=== PATIENT | male | born 1935 | race Caucasian/White ===

== ENCOUNTER 2018-04-04 12:55 | Inpatient (IN) | payer OTHER, BC ==
[2018-04-04] MEDS ORDERED: FOLIC ACID 5 MG/ML VIAL ONE (13:45)
--- NOTE | 2018-04-04 14:22 | RAD REPORT ---
EXAM DESCRIPTION: CT - Head Brain Wo Cont - 04/04/2018 1:56 pm CLINICAL HISTORY: Indication COMPARISON: None. TECHNIQUE: Computed axial tomography of the head was obtained. IV contrast was not requested. All CT scans are performed using dose optimization technique as appropriate and may include automated exposure control or mA/KV adjustment according to patient size. FINDINGS: 5.5 centimeter low-density area is present within the superior left temporal lobe having t he appearance of an acute infarction. An intracranial bleed is not seen . The ventricles are normal in caliber. Shift of the midline structures is not noted No extra-axial fluid collection is noted. Fluid within the sinuses/ mastoids is not seen. 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 Jones was notified at 2:17 p.m.
--- NOTE | 2018-04-04 14:28 | RAD REPORT ---
EXAM DESCRIPTION: USCarotid Artery Norlgphmz62/9/2018 2:12 pm CLINICAL HISTORY: Slurred speech COMPARISON: None FINDINGS: The velocity of the right internal carotid artery equals 91 cm/sec. The right ICA/CCA rati o 1.2 The velocity of the left internal carotid artery equals 102 cm/sec. The left ICA/CCA ratio 1.1 Mild plaque is present within the carotid arteries. The vertebral arteries demonstrate antegrade flow IMPRESSION: Mild plaque within the carotid arteries without evidence of a hemodynamically significan t stenosis
--- NOTE | 2018-04-04 15:04 | RAD REPORT ---
EXAM DESCRIPTION: Td Single View04/04/2018 2:40 pm CLINICAL HISTORY: Hypertension/cough COMPARISON: None FINDINGS: The lungs appear clear of acute infiltrate. The heart is mildly enlarged. Postsurgical changes involve the chest. Bilateral calcified pleural plaques are seen. IMPRESSION: No acute abnormalities displayed
--- NOTE | 2018-04-04 15:04 | EKG ---
Test Date: 2018-04-04 Test Time: 13:44:18 Insurance Inspector: TUSHAR MEASUREMENT RESULTS: Intervals: Rate: 66 NC: 198 QRSD: 120 QT: 384 QTc: 402 [place]: P: 62 NC: 198 QRS: 28 T: 95 INTERPRETIVE STATEMENTS: Normal sinus rhythm Anterior infarct, age undetermined ST & T wave abnormality, consider lateral ischemia Intraventricular conduction delay Abnormal ECG No previous ECG available for comparison Electronically Signed On 04-04-18 15:04:10 CDT by Luis Mary
[2018-04-04 15:05] LABS: Absolute Lymphocytes (CBC) 0.8 K/uL (0.7-4.9); Absolute Monocytes 0.6 K/uL (0.1-1.3); Basophils % 1.5 % (0-1.3); Eosinophils % 2.4 % (0-4.4); Lymphocytes % 17.7 % (15.3-44.8); MCH 32.4 pg (27.0-35.0); MCV 94.1 fL (80-100); MPV 8.4 fL (7.6-11.3); Monocytes % 12.2 % (3.3-12.3); RBC Red Blood Cell Count 4.46 M/uL (4.33-5.43)
--- NOTE | 2018-04-04 15:05 | EDPHYS ---
Physician Documentation [facility] Name: Oliver Vasquez Age: 82 yrs Sex: Male : 1935 Arrival Date: 04/04/2018 Time: 12:59 Bed 27 Private MD: ED Physician Rodrigo Arboleda HPI: 04/04 14:58 This 82 yrs old Male presents to ER via Ambulatory with complaints of onel Headache. 14:58 The patient complains of pain to the forehead. The patient describes the headache as a onel pressure. Onset: The symptoms/episode began/occurred 1 day(s) ago. Associated signs and symptoms: The patient has no apparent associated signs or symptoms. Severity of symptoms: At its worst the pain was moderate. 15:00 The patient's problem is reported as a facial droop, on left. Onset: The onel symptoms/episode began/occurred 1 day(s) ago. The symptoms are alleviated by nothing. The symptoms are aggravated by nothing. The patient presents to the emergency department with weakness of the left side of the face, that is moderate, upper and lower, a speech or higher order brain function problem, aphasia, that is mild. Historical: - Allergies: 13:08 Inderal; aa5 13:08 Lovastatin; aa5 13:08 TETRACYCLINES; aa5 - Home Meds: 13:08 losartan 100 mg oral tab [Active]; lisinopril 20 mg Oral tab [Active]; simvastatin 20 aa5 mg Oral tab [Active]; clonazepam 1 mg Oral tab [Active]; aspirin 81 mg oral chew 2 tabs once daily [Active]; - PMHx: 13:08 Hypertension; Hyperlipidemia; aa5 - PSHx: 13:08 Carotid surgery; triple bypass; aa5 - Immunization history:: Pneumococcal vaccine status is unknown, Flu vaccine is up to date. - Social history:: Smoking status: Patient/guardian denies using tobacco. - Ebola Screening: : No symptoms or risks identified at this time. - Family history:: not pertinent. ROS: 15:00 Constitutional: Negative for fever, chills, and weight loss, Eyes: Negative for injury, onel pain, redness, and discharge, ENT: Negative for injury, pain, and discharge, Neck: Negative for injury, pain, and swelling, Cardiovascular: Negative for chest pain, palpitations, and edema, Respiratory: Negative for shortness of breath, cough, wheezing, and pleuritic chest pain, Abdomen/GI: Negative for abdominal pain, nausea, vomiting, diarrhea, and constipation, Back: Negative for injury and pain, : Negative for injury, bleeding, discharge, and swelling, MS/Extremity: Negative for injury and deformity, Skin: Negative for injury, rash, and discoloration, Psych: Negative for depression, anxiety, suicide ideation, homicidal ideation, and hallucinations, Allergy/Immunology: Negative for hives, rash, and allergies, Endocrine: Negative for neck swelling, polydipsia, polyuria, polyphagia, and marked weight changes, Hematologic/Lymphatic: Negative for swollen nodes, abnormal bleeding, and unusual bruising. 15:00 Neuro: Positive for speech changes, weakness, of the forehead, left ear, left cheek, left shinto and left jaw. Exam: 15:00 Radiologist reports: left temporal acute infarction onel 15:00 Constitutional: This is a well developed, well nourished patient who is awake, alert, and in no acute distress. Eyes: Pupils equal round and reactive to light, extra-ocular motions intact. Lids and lashes normal. Conjunctiva and sclera are non-icteric and not injected. Cornea within normal limits. Periorbital areas with no swelling, redness, or edema. ENT: Nares patent. No nasal discharge, no septal abnormalities noted. Tympanic membranes are normal and external auditory canals are clear. Oropharynx with no redness, swelling, or masses, exudates, or evidence of obstruction, uvula midline. Mucous membranes moist. Neck: Trachea midline, no thyromegaly or masses palpated, and no cervical lymphadenopathy. Supple, full range of motion without nuchal rigidity, or vertebral point tenderness. No Meningismus. Chest/axilla: Normal chest wall appearance and motion. Nontender with no deformity. No lesions are appreciated. Cardiovascular: Regular rate and rhythm with a normal S1 and S2. No gallops, murmurs, or rubs. Normal PMI, no JVD. No pulse deficits. Respiratory: Lungs have equal breath sounds bilaterally, clear to auscultation and percussion. No rales, rhonchi or wheezes noted. No increased work of breathing, no retractions or nasal flaring. Abdomen/GI: Soft, non-tender, with normal bowel sounds. No distension or tympany. No guarding or rebound. No evidence of tenderness throughout. Back: No spinal tenderness. No costovertebral tenderness. Full range of motion. Male : Normal genitalia with no discharge or lesions. Skin: Warm, dry with normal turgor. Normal color with no rashes, no lesions, and no evidence of cellulitis. MS/ Extremity: Pulses equal, no cyanosis. Neurovascular intact. Full, normal range of motion. Psych: Awake, alert, with orientation to person, place and time. Behavior, mood, and affect are within normal limits. 15:00 Head/face: Noted is left facial weakness. 15:18 Neuro: symptoms started yesterday, not a tpa candidate, dw dr campos, he concurrs. [facility] Vital Signs: 13:10 BP 180 / 91; Pulse 79; Resp 18 S; Temp 98.5(O); Pulse Ox 98% on R/A; Weight 68.04 kg aa5 (R); Height 5 ft. 7 in. (170.18 cm) (R); Pain 0/10; 14:54 BP 191 / 75; Pulse 66; Resp 18; Pulse Ox 99% ; tl3 16:01 BP 164 / 82; Pulse 53; Resp 18; Pulse Ox 100% on R/A; tl3 13:10 Body Mass Index 23.49 (68.04 kg, 170.18 cm) aa5 NIH Stroke Scale Scores: 13:26 NIHSS Score: 2 tl3 15:04 NIHSS Score: 3 onel [place] Coma Score: 15:04 Eye Response: spontaneous(4). Verbal Response: oriented(5). Motor Response: obeys [facility] commands(6). Total: 15. MDM: 13:20 Patient medically screened. [facility] 15:07 Data reviewed: vital signs, nurses notes, lab test result(s), EKG, radiologic studies, [facility] CT scan, plain films, ultrasound. 04/04 13:30 Order name: Basic Metabolic Panel [facility] 04/04 13:30 Order name: CBC with Diff [facility] 04/04 13:30 Order name: LFT's [facility] 04/04 13:30 Order name: Magnesium [facility] 04/04 13:30 Order name: NT PRO-BNP [facility] 04/04 13:30 Order name: PT-INR [facility] 04/04 13:30 Order name: Troponin (emerg Dept Use Only) [facility] 04/04 13:30 Order name: XRAY Chest (1 view) [facility] 04/04 13:30 Order name: Lipase [facility] 04/04 13:30 Order name: Sed Rate [facility] 04/04 13:30 Order name: CRP [facility] 04/04 13:30 Order name: US Carotid Artery Bilateral; Complete Time: 14:55 [facility] 04/04 13:30 Order name: CT Head Brain wo Cont; Complete Time: 14:55 [facility] 04/04 13:30 Order name: Urine Culture [facility] 04/04 13:30 Order name: EKG; Complete Time: 13:31 [facility] 04/04 13:30 Order name: Cardiac monitoring; Complete Time: 13:36 [facility] 04/04 13:30 Order name: EKG - Nurse/Tech; Complete Time: 14:03 [facility] 04/04 13:30 Order name: IV Saline Lock; Complete Time: 13:36 [facility] 04/04 13:30 Order name: Labs collected and sent; Complete Time: 13:36 [facility] 04/04 13:30 Order name: O2 Per Protocol; Complete Time: 13:36 [facility] 04/04 13:30 Order name: O2 Sat Monitoring; Complete Time: 13:36 [facility] 04/04 13:30 Order name: MRI Stroke Protocol [facility] 04/04 13:30 Order name: Urine Dipstick-Ancillary (obtain specimen); Complete Time: 15:22 [facility] 04/04 15:10 Order name: Echo w/ Doppler [facility] 04/04 15:15 Order name: CONS Physician Consult; Complete Time: 17:02 EDCT 04/04 13:46 Order name: Labs - recollect needed; Complete Time: 14:48 bd Administered Medications: 13:40 Drug: foLIC Acid 1 mg Route: IVPB; Site: right antecubital; tl3 14:03 Follow up: Response: No adverse reaction tl3 15:22 Follow up: IV Status: Completed infusion; IV Intake: 3ml tl3 15:38 Drug: valACYclovir 1000 mg Route: PO; tl3 15:40 Follow up: Response: No adverse reaction tl3 15:39 Drug: Aspirin Chewable Tablet 162 mg Route: PO; tl3 16:02 Follow up: Response: No adverse reaction tl3 15:39 Drug: PlaVIX 75 mg Route: PO; tl3 15:40 Follow up: Response: No adverse reaction tl3 15:39 Drug: predniSONE 60 mg Route: PO; tl3 15:40 Follow up: Response: No adverse reaction tl3 Disposition: 04/04/18 15:04 Hospitalization ordered by Lucien Zhou for Inpatient Admission. 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 - Bed requested for Telemetry/MedSurg (Inpatient). - Status is Inpatient Admission. tl3 - Condition is Fair. - Problem is new. - Symptoms are unchanged. UTI on Admission? No NIH Stroke Scale - NIH Stroke Score Date: 04/04/2018 Time: 13:26 Total Score = 2 1a. Level of Consciousness (LOC) - 0(Alert) 1b. Level of Consciousness (LOC) (Year \T\ Age) - 0(Both) 1c. LOC Commands (Open \T\ Closes Eyes/Floor Plan Adjuster) - 0(Both) 2. Best Gaze (Lateral Gaze Paresis) - 0(Normal) 3. Visual Field Loss - 0(No visual loss) 4. Facial Palsy - 1(Minor Paralysis) 5a. Left Arm: Motor (10-second hold) - 0(No drift) 5b. Right Arm: Motor (10-second hold) - 0(No drift) 6a. Left Leg: Motor (5-second hold - always test supine) - 0(No drift) 6b. Right Leg: Motor (5-second hold - always test supine) - 0(No drift) 7. Limb Ataxia (finger/nose \T\ heel/marie - test with eyes open) - 0(Absent) 8. Sensory Loss (pinprick arms/legs/face) - 0(Normal) 9. Best Language: Aphasia (description/naming/reading) - 1(Mild to moderate aphasia) 10. Dysarthria (speech clarity - read or repeat words) - 0(Normal) 11. Extinction and Inattention (visual/tactile/auditory/spatial/personal) - 0(No abnormality) Initials: tl3 NIH Stroke Scale - NIH Stroke Score Date: 04/04/2018 Time: 15:04 Total Score = 3 1a. Level of Consciousness (LOC) - 0(Alert) 1b. Level of Consciousness (LOC) (Year \T\ Age) - 0(Both) 1c. LOC Commands (Open \T\ Closes Eyes/Floor Plan Adjuster) - 0(Both) 2. Best Gaze (Lateral Gaze Paresis) - 0(Normal) 3. Visual Field Loss - 0(No visual loss) 4. Facial Palsy - 2(Partial paralysis) 5a. Left Arm: Motor (10-second hold) - 0(No drift) 5b. Right Arm: Motor (10-second hold) - 0(No drift) 6a. Left Leg: Motor (5-second hold - always test supine) - 0(No drift) 6b. Right Leg: Motor (5-second hold - always test supine) - 0(No drift) 7. Limb Ataxia (finger/nose \T\ heel/marie - test with eyes open) - 0(Absent) 8. Sensory Loss (pinprick arms/legs/face) - 0(Normal) 9. Best Language: Aphasia (description/naming/reading) - 1(Mild to moderate aphasia) 10. Dysarthria (speech clarity - read or repeat words) - 0(Normal) 11. Extinction and Inattention (visual/tactile/auditory/spatial/personal) - 0(No abnormality) Initials: onel Signatures: Dispatcher [employer] EDElisha Lopse Corey, MD MD cha Calderon, Audri, RN RN aa5 Cinthia Garcia, MIGUELITO RN tl3 Corrections: (The following items were deleted from the chart) 17:13 15:04 Hospitalization Ordered by Lucien Zhou MD for Inpatient Admission. bd Preliminary diagnosis is Jaquez's palsy; Cerebral infarction - left temporal. Bed requested for Telemetry/MedSurg (Inpatient). Status is Inpatient Admission. Condition is Fair. Problem is new. Symptoms are unchanged. UTI on Admission? No. onel 17:34 17:13 04/04/2018 15:04 Hospitalization Ordered by Lucien Zhou MD for tl3 Inpatient Admission. 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 Bed requested for Telemetry/MedSurg (Inpatient). Status is Inpatient Admission. Condition is Fair. Problem is new. Symptoms are unchanged. UTI on Admission? No. grzegorz
--- NOTE | 2018-04-04 15:05 | ER ---
Nurse's Notes [facility] Name: Oliver Vasquez Age: 82 yrs Sex: Male : 1935 Arrival Date: 04/04/2018 Time: 12:59 Bed 27 Private MD: Diagnosis: Jaquez's palsy;Cerebral infarction-left temporal Presentation: 04/04 13:05 Presenting complaint: Patient states: "yesterday I just got a terrible headache". Pt aa5 denies nausea, vomiting. Mild aphasia noted and left facial droop noted. Pt's states "yesterday he was really bad, I was talking to him but he was like he couldn't hear me". 13:05 Transition of care: patient was not received from another setting of care. Onset of aa5 symptoms was March 2018. Risk Assessment: Do you want to hurt yourself or someone else? Patient reports no desire to harm self or others. Initial Sepsis Screen: Does the patient meet any 2 criteria? No. Patient's initial sepsis screen is negative. Does the patient have a suspected source of infection? No. Patient's initial sepsis screen is negative. Care prior to arrival: None. 13:05 Method Of Arrival: Ambulatory aa5 13:05 Acuity: BORIS 2 aa5 Triage Assessment: 17:33 Headache History: Denies prior headaches. General: Appears in no apparent distress. tl3 General: Behavior is calm, cooperative, appropriate for age. Pain: Also complains of. Pain: Denies pain. Pain Pain began 1 day ago. Historical: - Allergies: 13:08 Inderal; aa5 13:08 Lovastatin; aa5 13:08 TETRACYCLINES; aa5 - Home Meds: 13:08 losartan 100 mg oral tab [Active]; lisinopril 20 mg Oral tab [Active]; simvastatin 20 aa5 mg Oral tab [Active]; clonazepam 1 mg Oral tab [Active]; aspirin 81 mg oral chew 2 tabs once daily [Active]; - PMHx: 13:08 Hypertension; Hyperlipidemia; aa5 - PSHx: 13:08 Carotid surgery; triple bypass; aa5 - Immunization history:: Pneumococcal vaccine status is unknown, Flu vaccine is up to date. - Social history:: Smoking status: Patient/guardian denies using tobacco. - Ebola Screening: : No symptoms or risks identified at this time. - Family history:: not pertinent. Screenin:26 Abuse screen: Denies threats or abuse. Nutritional screening: No deficits noted. tl3 Tuberculosis screening: No symptoms or risk factors identified. The patient has not been NPO before screening. The patient is alert, able to follow commands. The patient does not exhibit slurred or garbled speech The patient is not exhibiting difficulty speaking. The patient is exhibiting difficulty understanding words. The patient is able to swallow own secretions with no drooling or need for suction. Patient tolerated one teaspoon of water. No drooling, immediate coughing, gurgling, or clearing of the throat was noted. The patient tolerated 90mL of water. No drooling, immediate coughing, gurgling, or clearing of the throat was noted. The patient passed the bedside swallow screening. Oral medications may be given as ordered. Contact Physician for further diet orders. Fall Risk None identified. Assessment: 13:26 General: Appears in no apparent distress. comfortable, slender, well groomed, well tl3 developed, well nourished, Behavior is calm, cooperative, appropriate for age. Pain: Denies pain. Neuro: Level of Consciousness is awake, alert, obeys commands, pt states that he had a terrible headache yesterday when he woke up, today he has no pain but feels "foggy", answers all questions appropriately but has trouble finding the right words. Oriented to person, place, time, situation, Appropriate for age. Cardiovascular: Patient's skin is warm and dry. Rhythm is sinus rhythm. Respiratory: Airway is patent Respiratory effort is even, unlabored, Respiratory pattern is regular, symmetrical. GI: No signs and/or symptoms were reported involving the gastrointestinal system. : No signs and/or symptoms were reported regarding the genitourinary system. EENT: No signs and/or symptoms were reported regarding the EENT system. Derm: No signs and/or symptoms reported regarding the dermatologic system. Musculoskeletal: No signs and/or symptoms reported regarding the musculoskeletal system. 14:54 Reassessment: Patient appears in no apparent distress at this time. No changes from tl3 previously documented assessment. Patient and/or family updated on plan of care and expected duration. Pain level reassessed. Patient is alert, oriented x 3, equal unlabored respirations, skin warm/dry/pink. at bedside. 16:01 Reassessment: Patient appears in no apparent distress at this time. No changes from tl3 previously documented assessment. Patient and/or family updated on plan of care and expected duration. Pain level reassessed. Patient is alert, oriented x 3, equal unlabored respirations, skin warm/dry/pink. 17:02 Reassessment: Pt to MRI. tl3 17:31 Reassessment: Patient appears in no apparent distress at this time. No changes from tl3 previously documented assessment. Patient and/or family updated on plan of care and expected duration. Pain level reassessed. Patient is alert, oriented x 3, equal unlabored respirations, skin warm/dry/pink. pt returned from MRI. Vital Signs: 13:10 BP 180 / 91; Pulse 79; Resp 18 S; Temp 98.5(O); Pulse Ox 98% on R/A; Weight 68.04 kg aa5 (R); Height 5 ft. 7 in. (170.18 cm) (R); Pain 0/10; 14:54 BP 191 / 75; Pulse 66; Resp 18; Pulse Ox 99% ; tl3 16:01 BP 164 / 82; Pulse 53; Resp 18; Pulse Ox 100% on R/A; tl3 13:10 Body Mass Index 23.49 (68.04 kg, 170.18 cm) aa5 [place] Coma Score: 15:04 Eye Response: spontaneous(4). Verbal Response: oriented(5). Motor Response: obeys onel commands(6). Total: 15. NIH Stroke Scale Scores: 13:26 NIHSS Score: 2 tl3 15:04 NIHSS Score: 3 [facility] ED Course: 12:59 Patient arrived in ED. mr 13:05 Arm band placed on Patient placed in an exam room, on a stretcher. aa5 13:20 Rodrigo Arboleda MD is Attending Physician. [facility] 13:25 Triage completed. aa5 13:26 Cinthia Garcia, RN is Primary Nurse. tl3 13:26 Patient has correct armband on for positive identification. Placed in gown. Bed in low tl3 position. Call light in reach. Side rails up X2. Adult w/ patient. director cost on. Pulse ox on. NIBP on. 13:26 No provider procedures requiring assistance completed. tl3 13:45 Note: WILL DO U/S AFTER CT. aa4 13:54 EKG done, by explosive ordnance disposal technician. reviewed by Rodrigo Arboleda MD. dt2 13:55 CT completed. Patient tolerated procedure well. Patient moved to CT via wheelchair. sj Patient taken to ultrasound. Patient moved back from CT. 13:56 CT Head Brain wo Cont In Process Unspecified. EDMS 14:08 US Carotid Artery Bilateral In Process Unspecified. EDMS 14:29 Ultrasound completed. Patient tolerated well. Patient moved back from ultrasound. aa4 14:35 X-ray completed. Portable x-ray completed in exam room. Patient tolerated procedure ml well. 14:36 XRAY Chest (1 view) In Process Unspecified. EDMS 15:03 Lucien Zhou MD is Hospitalizing Provider. [facility] 15:22 MRI Stroke Protocol Sent. tl3 16:30 Patient moved to MRI via wheelchair. ka 17:31 Patient admitted, IV remains in place. tl3 Administered Medications: 13:40 Drug: foLIC Acid 1 mg Route: IVPB; Site: right antecubital; tl3 14:03 Follow up: Response: No adverse reaction tl3 15:22 Follow up: IV Status: Completed infusion; IV Intake: 3ml tl3 15:38 Drug: valACYclovir 1000 mg Route: PO; tl3 15:40 Follow up: Response: No adverse reaction tl3 15:39 Drug: Aspirin Chewable Tablet 162 mg Route: PO; tl3 16:02 Follow up: Response: No adverse reaction tl3 15:39 Drug: PlaVIX 75 mg Route: PO; tl3 15:40 Follow up: Response: No adverse reaction tl3 15:39 Drug: predniSONE 60 mg Route: PO; tl3 15:40 Follow up: Response: No adverse reaction tl3 Intake: 15:22 IV: 3ml; Total: 3ml. tl3 Outcome: 15:04 Decision to Hospitalize by Provider. onel 17:31 Admitted to Tele accompanied by tech, via wheelchair, with chart, Report called to [email or web address] MIGUELITO Chaudhry 17:31 Condition: stable 17:31 Instructed on the need for admit, Demonstrated understanding of instructions. 17:34 Patient left the ED. tl3 NIH Stroke Scale - NIH Stroke Score Date: 04/04/2018 Time: 13:26 Total Score = 2 1a. Level of Consciousness (LOC) - 0(Alert) 1b. Level of Consciousness (LOC) (Year \\T\\ Age) - 0(Both) 1c. LOC Commands (Open \\T\\ Closes Eyes/Nurse Chemical Dependency) - 0(Both) 2. Best Gaze (Lateral Gaze Paresis) - 0(Normal) 3. Visual Field Loss - 0(No visual loss) 4. Facial Palsy - 1(Minor Paralysis) 5a. Left Arm: Motor (10-second hold) - 0(No drift) 5b. Right Arm: Motor (10-second hold) - 0(No drift) 6a. Left Leg: Motor (5-second hold - always test supine) - 0(No drift) 6b. Right Leg: Motor (5-second hold - always test supine) - 0(No drift) 7. Limb Ataxia (finger/nose \\T\\ heel/marie - test with eyes open) - 0(Absent) 8. Sensory Loss (pinprick arms/legs/face) - 0(Normal) 9. Best Language: Aphasia (description/naming/reading) - 1(Mild to moderate aphasia) 10. Dysarthria (speech clarity - read or repeat words) - 0(Normal) 11. Extinction and Inattention (visual/tactile/auditory/spatial/personal) - 0(No abnormality) Initials: tl3 NIH Stroke Scale - NIH Stroke Score Date: 04/04/2018 Time: 15:04 Total Score = 3 1a. Level of Consciousness (LOC) - 0(Alert) 1b. Level of Consciousness (LOC) (Year \\T\\ Age) - 0(Both) 1c. LOC Commands (Open \\T\\ Closes Eyes/Nurse Chemical Dependency) - 0(Both) 2. Best Gaze (Lateral Gaze Paresis) - 0(Normal) 3. Visual Field Loss - 0(No visual loss) 4. Facial Palsy - 2(Partial paralysis) 5a. Left Arm: Motor (10-second hold) - 0(No drift) 5b. Right Arm: Motor (10-second hold) - 0(No drift) 6a. Left Leg: Motor (5-second hold - always test supine) - 0(No drift) 6b. Right Leg: Motor (5-second hold - always test supine) - 0(No drift) 7. Limb Ataxia (finger/nose \\T\\ heel/marie - test with eyes open) - 0(Absent) 8. Sensory Loss (pinprick arms/legs/face) - 0(Normal) 9. Best Language: Aphasia (description/naming/reading) - 1(Mild to moderate aphasia) 10. Dysarthria (speech clarity - read or repeat words) - 0(Normal) 11. Extinction and Inattention (visual/tactile/auditory/spatial/personal) - 0(No abnormality) Initials: onel Signatures: Dispatcher [employer] Rodrigo Ojeda MD MD cha Rivera, Taina mr Del Toro, Estephania Jang, Arianna Nagel aa4 Dee Zavala, RN RN aa5 Shiloh Szymanski Tammy, RN RN tl3 Sana Sylvester
[2018-04-04] MEDS ORDERED: VALACYCLOVIR 500 MG TAB ONE (15:32)
[2018-04-04] MEDS ORDERED: ASPIRIN 81 MG CHEWABLE TABLET ONE (15:32)
[2018-04-04] MEDS ORDERED: CLOPIDOGREL 75 MG TABLET ONE (15:32)
[2018-04-04] MEDS ORDERED: predniSONE 20 MG TAB ONE (15:33)
[2018-04-04 16:12] LABS: ALT/SGPT 34 U/L (12-78); AST/SGOT 29 U/L (15-37); Albumin 3.7 g/dL (3.4-5.0); Alkaline Phosphatase 64 U/L (45-117); BUN Blood Urea Nitrogen 13 mg/dL (7-18); Bicarbonate 28 mmol/L (21-32); Bilirubin Direct < 0.1 mg/dL (0-0.2); Bilirubin Total 0.4 mg/dL (0.2-1.0); C-Reactive Protein < 2.90 mg/L (<3.00); Glucose Level 90 mg/dL (74-106); Lipase 176 U/L (73-393); Magnesium 2.4 mg/dL (1.8-2.4); NT PRO-BNP 143 pg/mL (<450); Potassium 4.5 mmol/L (3.5-5.1); Protein, Total 7.6 g/dL (6.4-8.2); Sodium Level 135 mmol/L (136-145); Troponin (Emerg Dept Use Only) < 0.02 ng/mL (0.0-0.045)
[2018-04-04] MEDS ORDERED: MAGNESIUM HYDROXIDE 8% 30 ML PO PRN (16:18)
[2018-04-04] MEDS ORDERED: ONDANSETRON 4 MG/2 ML VIAL IV PRN (16:18)
[2018-04-04 16:37] LABS: Protime INR 0.99
--- NOTE | 2018-04-04 17:29 | ECHO ---
HEIGHT: ft in WEIGHT: lb oz DATE OF STUDY: 04/04/[address]: Rodrigo Arboleda MD 2-DIMENSIONAL: YES M.MODE: YES DOPPLER: YES COLOR FLOW: YES TDS: PORTABLE: DEFINITY: BUBBLE STUDY: DIAGNOSIS: CEREBRAL VASCULAR ACCIDENT CARDIAC HISTORY: CATHERIZATION: YES SURGERY: YES PROSTHETIC VALVE: NO PACEMAKER: YES MEASUREMENTS (cm) DIASTOLIC (NORMALS) SYSTOLIC (NORMALS) IVSd 0.9 (0.6-1.2) LA Diam 3.7 (1.9-4.0) LVEF 51% LVIDd 4.6 (3.5-5.7) LVIDs 3.4 (2.0-3.5) %FS 26% LVPWd 0.9 (0.6-1.2) Ao Diam 2.8 (2.0-3.7) 2 DIMENSIONAL ASSESSMENT: RIGHT ATRIUM: NORMAL LEFT ATRIUM: NORMAL RIGHT VENTRICLE: NORMAL LEFT VENTRICLE: NORMAL TRICUSPID VALVE: NORMAL MITRAL VALVE: NORMAL PULMONIC VALVE: NORMAL AORTIC VALVE: SCLEROSIS PERICARDIAL EFFUSION: NONE AORTIC ROOT: NORMAL LEFT VENTRICULAR WALL MOTION: NORMAL DOPPLER/COLOR FLOW: MILD AORTIC REGURGITATION. MILD TRICUSPID REGURGITATION. NORMAL RIGHT VENTRICULAR SYSTOLIC PRESSURE. NO AORTIC STENOSIS. COMMENTS: NORMAL LEFT VENTRICULAR EJECTION FRACTION. AORTIC SCLEROSIS WITH NO AORTIC STENOSIS. MILD AORTIC REGURGITATION. MILD TRICUSPID REGURGITATION. TECHNOLOGIST: DANDRE STEVENS
--- NOTE | 2018-04-04 17:34 | RAD REPORT ---
EXAM DESCRIPTION: MRI - Brain W/Wo Cont - 04/04/2018 5:22 pm CLINICAL HISTORY: HEADACHE, MILD APHASIA, LEFT FACIAL DROOP SINCE YESTERDAY COMPARISON: CT head same date TECHNIQUE: Sagittal and axial T1-weighted images were obtained. Axial PD/heavily T2-weighted and T2- FLAIR images were obtained along with axial DWI/ADC mapping sequences. Coronal heavily T2 weighted s equence obtained. Axial and coronal post-contrast T1-weighted images were also obtained. A 16 ml Mul tihance contrast following utilized. FINDINGS: No intracranial hemorrhage is present. Diffusion-weighted imaging shows a large 8 centimet er area of abnormal diffusion signal involving the posterior left temporal lobe and including a porti on of the anterolateral left occipital lobe and inferior aspect of the left parietal lobe. This match es the CT finding. There is corresponding diminished signal on ADC mapping sequence. Cortical edema a nd sulcal effacement present. No significant mass effect. There is no midline shift. No additional area of acute infarction. Patient has no significant chronic ischemic change and only m ild atrophy. No suspicious enhancement pattern. No dural thickening or enhancement. Mastoid air cells and paranasal sinuses are clear. No globe or orbital content abnormality. IMPRESSION: Large area of nonhemorrhagic acute infarction involving the posterior left temporal lobe and incorporating portions of the parietal lobe and anterior margin of the occipital lobe. There is mild edema with no significant mass effect. No midline shift. Patient has little underlying atrophy or chronic ischemic change.
--- NOTE | 2018-04-04 17:37 | RAD REPORT ---
EXAM DESCRIPTION: MRI - MRA Neck W/Wo Cont - 04/04/2018 5:23 pm CLINICAL HISTORY: Acute CVA left cerebral hemisphere COMPARISON: None. TECHNIQUE: Axial and coronal 3D [id number] image acquisition was performed. 3D rotational images were generated with source and reconstruction images reviewed. Vertical axes 3D rotational images ge nerated using maximum intensity projection protocol. A 12 milliliter MultiHance contrast volume was u tilized. FINDINGS: Aortic arch is 3 vessel. No origin stenosis seen. Vertebral artery origins also clear of s ignificant stenosis. Left vertebral artery origin is tortuous. Vertebral arteries are codominant. No stenosis, dissection or acute vertebral finding. Vertebrobasilar tortuosity present without stenosis. Bilateral common carotid artery show some proximal tortuosity but no stenosis or acute finding. Left internal carotid artery is unremarkable. Right internal carotid artery shows approximately 40% stenos is at the bulb. This would be unrelated to a left cerebral CVA. IMPRESSION: Approximately 40% narrowing at the right carotid bulb, not related to the acute CVA. MRA neck examination otherwise unremarkable.
--- NOTE | 2018-04-04 17:40 | RAD REPORT ---
EXAM DESCRIPTION: MRI - MRA Head Wo Cont - 04/04/2018 5:23 pm COMPARISON: None. TECHNIQUE: Axial and coronal 3D [id number] image acquisition was performed. 3D rotational images were generated with source and reconstruction images reviewed. Horizontal and vertical axes 3D proje ctions generated using maximum intensity projection protocol. FINDINGS: Major venous sinuses are patent. Vertebrobasilar tortuosity present with no stenosis. No basilar artery abnormality. Distal internal c arotid artery show no significant disease. The bilateral anterior cerebral and right middle cerebral artery show no significant disease. Bilateral posterior cerebral arteries also without significant di sease. Mild atherosclerotic changes in the left middle cerebral artery distribution. A specific branc h occlusion matching the CVA is not identified. IMPRESSION: No significant intracranial atherosclerotic change and no significant disease of the bas ilar artery or distal internal carotid arteries. A specific branch occlusion is not identified to match the acute CVA findings.
[2018-04-04] MEDS: NA CHLORIDE 0.9% 1,000 ML IV SCH (18:30)
[2018-04-04] MEDS: ENOXAPARIN 40 MG/0.4 ML SQ SCH (18:32)
[2018-04-04 18:48] LABS: Urine Blood 1+ (NEG); Urine Glucose NEGATIVE (NEG); Urine Protein NEGATIVE (NEG); Urine Specific Gravity <1.005 (1.005-1.030); Urine pH 5.5 (5.0-7.0)
[2018-04-04] MEDS: ALBUTEROL 2.5 MG/3 ML NEB SOL NEB SCH (19:33)
[2018-04-04] MEDS: IPRATROPIUM BROM 0.5MG/2.5ML NEB SCH (19:33)
[2018-04-05] MEDS: IPRATROPIUM BROM 0.5MG/2.5ML NEB SCH ×4 (01:21→20:05)
[2018-04-05] MEDS: ALBUTEROL 2.5 MG/3 ML NEB SOL NEB SCH ×4 (01:21→20:05)
[2018-04-05] MEDS: NA CHLORIDE 0.9% 1,000 ML IV SCH ×3 (04:25→19:40)
[2018-04-05 04:58] LABS: Absolute Lymphocytes (CBC) 0.7 K/uL (0.7-4.9); Absolute Monocytes 0.2 K/uL (0.1-1.3); Absolute Neutrophil 4.7 K/uL (1.8-8.0); Basophils % 0.2 % (0-1.3); Hematocrit 41.8 % (39.6-49.0); Lymphocytes % 11.9 % (15.3-44.8); MCH 32.7 pg (27.0-35.0); MCV 94.5 fL (80-100); MPV 8.6 fL (7.6-11.3); Monocytes % 2.9 % (3.3-12.3); RBC Red Blood Cell Count 4.43 M/uL (4.33-5.43)
[2018-04-05 05:15] LABS: ALT/SGPT 26 U/L (12-78); AST/SGOT 22 U/L (15-37); Albumin 3.3 g/dL (3.4-5.0); Alkaline Phosphatase 54 U/L (45-117); BUN Blood Urea Nitrogen 12 mg/dL (7-18); Bicarbonate 25 mmol/L (21-32); Bilirubin Total 0.3 mg/dL (0.2-1.0); Glucose Level 163 mg/dL (74-106); HDL Cholesterol 50 mg/dL (40-60); LDL Cholesterol, Calculated 62 (<130); Magnesium 2.1 mg/dL (1.8-2.4); Phosphorus 3.4 mg/dL (2.5-4.9); Potassium 3.9 mmol/L (3.5-5.1); Protein, Total 6.8 g/dL (6.4-8.2); Sodium Level 138 mmol/L (136-145)
[2018-04-05] MEDS ORDERED: KCL 20 MEQ/100 mL IVPB 20 MEQ/100 ML BAG IV SCH (06:00)
--- NOTE | 2018-04-05 07:19 | P.HP ---
Certification for Inpatient Patient admitted to: Inpatient With expected LOS: >2 Midnights Patient will require the following post-hospital care: None Practitioner: I am a practitioner with admitting privileges, knowledge of patient current condition, hospital course, and medical plan of care. Services: Services provided to patient in accordance with Admission requirements found in Title 42 Section 412.3 of the Code of Federal Regulations Patient History Date of Service: 04/04/18 Reason for admission: Acute CVA History of Present Illness: Patient is an 82yo who was admitted to the hospital with confusion. Patient was not making a lot of sense whenever his family was talking to him. Patient was brought into the ER for evaluation. On further evaluation patient has aphasia. Patient states that his symptoms started on Tuesday. He had a really severe headache. He took some medicine and by Tuesday morning the headache had improved but he was having the confusion. Patient's NIHSS stroke scale was 2. Patient's confusion was secondary to him having aphasia. This was explained by the left MCA infarct. He had an MRI in the emergency room which confirmed that patient has had an acute stroke. Patient was out of the window for tPA. Patient will be admitted to the hospital for further evaluation and treatment. Allergies lovastatin Allergy (Severe, Verified 04/04/18 17:56) Itching/Hives/Rash propranolol [From Inderal [place]] Allergy (Severe, Verified 04/04/18 17:56) Itching/Hives/Rash tetracycline Allergy (Severe, Verified 04/04/18 17:56) Itching/Hives/Rash Home Medications: Aspirin [Aspirin EC 81 MG] 81 mg PO DAILY 04/04/18 Lisinopril [Prinivil*] 20 mg PO DAILY 04/04/18 Losartan Potassium 100 mg PO DAILY 04/04/18 Saw Rogers 320 mg PO DAILY 04/04/18 Simvastatin 1 tab PO BEDTIME 04/04/18 clonazePAM [Clonazepam] 1 mg PO DAILY PRN 04/04/18 - Past Medical/Surgical History Has patient received pneumonia vaccine in the past: Yes Diabetic: No -: patient denies past medical history -: HTN -: HYPERLIPIDEMIA -: BELLS -: Coronary artery disease -: Carotid artery stenosis -: CABG X 4 -: Carotid endarterectomy - Family History Father Family History: Reviewed- Non-Contributory - Social History Smoking Status: Former smoker Alcohol use: No CD- Drugs: No Caffeine use: Yes Place of Residence: Home Review of Systems 10-point ROS is otherwise unremarkable Physical Examination - Vital Signs Temperature: 98.1 F Blood Pressure: 129/64 Pulse: 69 Respirations: 18 Pulse Ox (%): 98 - Physical Exam General: Alert, In no apparent distress, Oriented x3 HEENT: Atraumatic, PERRLA, Mucous membr. moist/pink, EOMI, Sclerae nonicteric Neck: Supple, 2+ carotid pulse no bruit, No LAD, Without JVD or thyroid abnormality Respiratory: Clear to auscultation bilaterally, Normal air movement Cardiovascular: Regular rate/rhythm, Normal S1 S2, No murmurs Gastrointestinal: Normal bowel sounds, No tenderness Musculoskeletal: No tenderness Integumentary: No rashes Neurological: Normal gait, Normal strength at 5/5 x4 extr, Normal tone, Sensation intact, Cranial nerves 3-12 intact, Normal reflexes 2+, Normal affect , Abnormal speech Lymphatics: No axilla or inguinal lymphadenopathy - Studies Laboratory Data (last 24 hrs) 04/04/18 15:10: PT 11.7, INR 0.99 04/04/18 15:10: WBC 4.6, Hgb 14.5, Hct 42.0, Plt Count 231 04/04/18 15:10: Sodium 135 L, Potassium 4.5, BUN 13, Creatinine 0.80, Glucose 90 , Magnesium 2.4, Total Bilirubin 0.4, AST 29, ALT 34, Alkaline Phosphatase 64, Lipase 176 Assessment & Plan - Problems (Diagnosis) (1) Left acute arterial ischemic stroke, MCA (middle cerebral artery) Current Visit: Yes Status: Acute (2) Aphasia complicating stroke Current Visit: Yes Status: Acute (3) History of carotid artery disease Current Visit: Yes Status: Acute (4) History of coronary artery bypass graft Current Visit: Yes Status: Acute (5) History of tobacco abuse Current Visit: Yes Status: Acute - Plan Plan: 1. Physical therapy evaluation 2. Speech therapy evaluation 3. Anti-platelet therapy and statin therapy 4. Lipid profile in the morning 5. DVT prophylaxis 6. Physically patient is doing well and may benefit more from outpatient physical therapy and inpatient rehab 7. Neurology consultation 8. Permissive hypertension and gradual blood pressure control 9. Neuro checks every 4 hr 10. GI and DVT prophylaxis Discharge Plan: Home Plan to discharge in: Greater than 2 days - Advance Directives Does patient have a Living Will: No Does patient have a Durable POA for Healthcare: No - Code Status/Comfort Care Code Status Assessed: Yes Code Status: Full Code Critical Care: No Time Spent Managing PTS Care (In Minutes): 50
[2018-04-05] MEDS: ENOXAPARIN 40 MG/0.4 ML SQ SCH (08:45)
[2018-04-05] MEDS: CLOPIDOGREL 75 MG TABLET PO SCH (08:45)
[2018-04-05] MEDS ORDERED: ASPIRIN EC 81 MG TAB PO SCH (09:00)
[2018-04-05] MEDS: ACETAMINOPHEN 500 MG TAB PO PRN (10:02)
[2018-04-05] MEDS ORDERED: POTASSIUM CL SA 10 MEQ TAB PO ONE (10:21)
--- NOTE | 2018-04-05 15:01 | P.PN ---
Subjective Date of Service: 04/05/18 Primary Care Provider: Dr. Keen([facility]); Cardiology-Dr. Jung Chief Complaint: Acute CVA Subjective: Other (Slight confusion noted but improved. No headaches noted. No aphasia noted.) Physical Examination - Vital Signs Temperature: 97.6 F Blood Pressure: 152/70 Pulse: 58 Respirations: 16 Pulse Ox (%): 100 - Physical Exam General: Alert, In no apparent distress, Cooperative, Other (Patient appropriate and cooperative. Slight confusion noted.) HEENT: Atraumatic, Mucous membr. moist/pink Neck: Supple, No Thyromegaly Respiratory: Clear to auscultation bilaterally, Normal air movement Cardiovascular: Normal pulses, Regular rate/rhythm Gastrointestinal: Normal bowel sounds, Soft and benign, Non-distended, No tenderness, No masses, No rebound, No guarding Musculoskeletal: No erythema, No tenderness, No warmth Integumentary: No tenderness/swelling, No erythema, No warmth, No cyanosis Neurological: Normal speech, Normal strength at 5/5 x4 extr, Normal tone, Normal affect - Studies Laboratory Data (last 24 hrs) 04/04/18 15:10: PT 11.7, INR 0.99 04/04/18 15:10: WBC 4.6, Hgb 14.5, Hct 42.0, Plt Count 231 04/04/18 15:10: Sodium 135 L, Potassium 4.5, BUN 13, Creatinine 0.80, Glucose 90 , Magnesium 2.4, Total Bilirubin 0.4, AST 29, ALT 34, Alkaline Phosphatase 64, Lipase 176 Assessment & Plan Discharge Plan: Home Plan to discharge in: 24 Hours Physician Review Additional Text: Impression: Confusion, headaches, and aphasia secondary to CVA with MRI showing large area of nonhemorrhagic acute infarct involving the posterior left temporal lobe and incorporating portions of the parietal lobe and anterior margin of the occipital lobe Hypertension Hyperlipidemia CAD with previous CABG Carotid arterial disease Plan: Confusion, headaches, and aphasia secondary to CVA with MRI showing large area of nonhemorrhagic acute infarct involving the posterior left temporal lobe and incorporating portions of the parietal lobe and anterior margin of the occipital lobe: Patient improved. No more headaches noted. Confusion mild but improved. No aphasia identified. Echocardiogram shows ejection fraction 51 %. Patient now on aspirin 81 mg daily and Plavix 75 mg daily. Folic acid started. Patient on Lipitor 80 mg daily. Patient on DVT prophylaxis. Will continue with IV fluids. Await further recommendations from neurology. Will have physical therapy assess ambulation. Anticipate discharge in the next 24- 48 hours. Patient will likely require home health and physical therapy. Hypertension: Will start lisinopril 10 mg daily. Will hold if blood pressure less than 160 systolic. Hyperlipidemia: Patient on Lipitor 80 mg daily. CAD with previous CABG: Continue with above medication changes. Carotid arterial disease: Continue with above medication changes. I will turn the service over to Dr. Rosa tomorrow. I will go over the plan of care. Time Spent Managing Pts Care (In Minutes): 55
[2018-04-05] MEDS: LISINOPRIL 10 MG TAB PO SCH (15:57)
[2018-04-05] MEDS: ASPIRIN EC 81 MG TAB PO SCH (16:00)
[2018-04-05] MEDS ORDERED: ATORVASTATIN 80 MG TAB PO SCH (21:00)
--- NOTE | 2018-04-05 23:25 | CON ---
Reason For Consultation: Consultation called because of stroke. History Of Present Illness: Mr. Vasquez is an 82-year-old right-handed patient with hypert ension and dyslipidemia, who developed symptoms on Tuesday of confusion and poor vision. The patient' s family said he was not able to communicate effectively. He was not answering appropriately, did no t make sense when he spoke. He did not seek medical attention immediately. The next day, which was Tuesday, he developed a significant headache with continued confusion and at that point he actually ca me in to [facility]. His finding was of an NIH stroke scale of 2. His brain MRI after CT s can was done identified a large, nonhemorrhagic acute stroke in the left posterior temporal lobe inco rporating the parietal lobe and anterior margins of the occipital lobe. The patient did not have wea kness and this is consistent with location of the stroke as it is away from the motor strip or the po sterior limb of internal capsule. As noted, head CT scan which was done prior to the MRI did show th e same finding of an acute infarct in the left temporal lobe. The patient said he was taking 2 aspir in daily. At this point, he was switched to aspirin along with Plavix. He has been on DVT prophylax is and continued on high dose of statin. His neck MR angiogram showed 40% narrowing of the right car otid bulb, but of course that was not in the distribution of the patient's stroke which is in the con tralateral side. A brain MR angiogram showed no abnormalities in the [place]. Carotid miguel a ry ultrasound showed mild plaque in both carotid arteries, but no hemodynamically significant stenosi s was identified. His electrocardiogram showed normal sinus rhythm, anterior infarct, age undetermin ed; and his echocardiogram showed ejection fraction 51% with aortic sclerosis with no stenosis, mild aortic and tricuspid regurgitation. Since his admission, the patient has had some significant improv ement in his expressive and receptive aphasias. He is able to communicate more effectively. Past Medical History: As indicated, with hypertension, dyslipidemia, history of Jaquez's palsy, laird ry artery disease, carotid artery stenosis. Past Surgical History: Four-vessel cardiac bypass and carotid endarterectomy. Medications At Home: Aspirin 162 mg daily, Prinivil 20 mg daily, losartan 100 mg daily, Saw [place] 320 mg daily, simvastatin daily, and clonazepam 1 mg daily. Allergies: LOVASTATIN, PROPRANOLOL, TETRACYCLINE. Family History: Noncontributory. Social History: Smoked in the past and does use caffeine. No current alcohol use. Review of Systems: He denies any recent fevers, chills, nausea, vomiting, myalgias, arthralgias, headache, weight change , rash. No psychiatric complaints. No gastrointestinal or genitourinary issues. Physical Examination: Vital Signs: Blood pressure 152/70, pulse 85, respiratory rate 16, temperature 97.6, oxygen saturati on 98% to 100% on room air. His weight is 151 pounds, height 5 feet 7 inches, BMI 23.6. General: Mr. Vasquez is in his bed and actually was able to sit and stand comfortably at the side of bed. He is in no acute distress. HEENT: He is normocephalic, atraumatic. Sclerae anicteric. Oropharynx is moist and pink. Neck: Supple. Chest: Clear. Heart: Regular. Extremities: Show no edema cyanosis or clubbing Neurologically: He is alert. He is aphasic in term s of his decreased frequency of speech production. Does have some difficulty with paraphasic errors. May call objects by the wrong word as he speaks and he does have some difficulty comprehending two- step commands such as taking the right index finger and touching the left ear or simple commands even such as showing a thumbs up sign or victory sign, which he initially did get after repeated encourag ement. Otherwise, he did not have any visual field deficits despite the location of stroke. Face is symmetric with good excursions bilaterally. Tongue and palate are midline. His motor examination d id show 5/5 strength proximally and distally in upper and lower extremities. Coordination intact in upper and lower extremities. His reflexes are 1 to 2+ and symmetric in upper and lower extremities. His gait shows good stance and stride. NIH stroke scale is at 2. Laboratory Studies: Complete blood count with differential is essentially unremarkable. Coagulation panel shows INR of 0.99. Chemistries, essentially unremarkable. His glucose did range from 96 to 1 63, calcium slightly low at 8.0, LDL cholesterol 62, HDL cholesterol 50, cholesterol to HDL ratio 2.3 6, and urinalysis shows 1+ blood and specific gravity less than 0.0058. Assessment: Mr. 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 H matt is not having a focal weakness or numbness in the face, arm, or leg. He was taking an aspirin prio r to the stroke and is now on aspirin along with Plavix and high-dose statin that is Lipitor 80 mg at bedtime. He is on Lovenox 40 mg subcutaneously for deep vein thrombosis prophylaxis. Does have Alejandra nivil as well. Plan: 1.The patient may be discharged home and have outpatient speech therapy. 2.Continue medications as indicated above. 3.The patient is to follow up in Dr. Jordan's office 1 month after discharge. 4.He was actually told of many of the important factors to help reduce the risk of another stroke in cluding changing diet, exercise, hydration, and rest. RAMY/GODFREY Voice ID: [id number] Report ID: [id number]
[2018-04-06] MEDS: IPRATROPIUM BROM 0.5MG/2.5ML NEB SCH ×2 (01:29→07:30)
[2018-04-06] MEDS: ALBUTEROL 2.5 MG/3 ML NEB SOL NEB SCH ×2 (01:29→07:30)
[2018-04-06] MEDS: NA CHLORIDE 0.9% 1,000 ML IV SCH (02:11)
[2018-04-06 05:06] LABS: Absolute Lymphocytes (CBC) 1.4 K/uL (0.7-4.9); Absolute Monocytes 0.8 K/uL (0.1-1.3); Absolute Neutrophil 2.5 K/uL (1.8-8.0); Basophils % 1.4 % (0-1.3); Eosinophils % 4.9 % (0-4.4); Hematocrit 38.1 % (39.6-49.0); MCH 32.6 pg (27.0-35.0); MCV 94.9 fL (80-100); MPV 8.5 fL (7.6-11.3); Monocytes % 15.6 % (3.3-12.3); RBC Red Blood Cell Count 4.02 M/uL (4.33-5.43)
[2018-04-06 05:16] LABS: BUN Blood Urea Nitrogen 12 mg/dL (7-18); Bicarbonate 25 mmol/L (21-32); Glucose Level 96 mg/dL (74-106); Magnesium 2.1 mg/dL (1.8-2.4); Sodium Level 144 mmol/L (136-145)
[2018-04-06 05:39] LABS: Blood Morphology Comment NOT SEEN (NOT SEEN); Platelet Estimate ADEQ
[2018-04-06] MEDS: LISINOPRIL 10 MG TAB PO SCH (09:00)
[2018-04-06] MEDS: ACETAMINOPHEN 500 MG TAB PO PRN (09:33)
[2018-04-06] MEDS: ENOXAPARIN 40 MG/0.4 ML SQ SCH (09:33)
[2018-04-06] MEDS: ASPIRIN EC 81 MG TAB PO SCH (09:37)
[2018-04-06] MEDS: CLOPIDOGREL 75 MG TABLET PO SCH (09:37)
--- NOTE | 2018-04-06 12:37 | P.DS ---
Admission Date: 04/04/18 Discharge Date: 04/06/18 Primary Care Provider: Dr. Keen([facility] [place] Cardiology-Dr. Jung Disposition: ROUTINE DISCHARGE Discharge Condition: GOOD Reason for Admission: Acute CVA Consultations: Neurology - Problems (1) Left acute arterial ischemic stroke, MCA (middle cerebral artery) Onset Date: 04/05/18 Current Visit: Yes Status: Acute (2) Aphasia complicating stroke Onset Date: 04/05/18 Current Visit: Yes Status: Acute (3) History of carotid artery disease Current Visit: Yes Status: Chronic (4) History of coronary artery bypass graft Current Visit: Yes Status: Chronic (5) History of tobacco abuse Current Visit: Yes Status: Chronic Brief History of Present Illness: Patient is an 82yo who was admitted to the hospital with confusion. Patient was not making a lot of sense whenever his family was talking to him. Patient was brought into the ER for evaluation. On further evaluation patient has aphasia. Patient states that his symptoms started on Tuesday. He had a really severe headache. He took some medicine and by Tuesday morning the headache had improved but he was having the confusion. Patient's NIHSS stroke scale was 2. Patient's confusion was secondary to him having aphasia. This was explained by the left MCA infarct. He had an MRI in the emergency room which confirmed that patient has had an acute stroke. Patient was out of the window for tPA. Patient will be admitted to the hospital for further evaluation and treatment. Hospital Course: Overall during the hospital stay patient remained stable The patient was initially admitted to the hospital for confusion and patient was found to have left-sided posterior temporal lobe infarction incorporating the parietal area and involving the anterior margin of the occipital lobe as well. Patient was seen by a neurologist here in the hospital who recommended the patient be continued on aspirin Plavix and high-dose statins on discharge. Patient was also recommended to have speech therapy at home for his he the She[place]. Patient did well overall post admission. Patient then was discharged home under stable condition and was asked to follow up with neurology and continue taking aspirin Plavix and simvastatin. Patient was also given a referral for home health agency to start with speech and physical therapy for the meantime. Patient and family at bedside demonstrated understanding and thus patient was discharged home under stable condition. Vital Signs/Physical Exam: Temp Pulse Resp BP Pulse Ox 98.2 F 77 16 187/83 H 99 04/06/18 07:30 04/06/18 07:30 04/06/18 07:30 04/06/18 07:30 04/06/18 07:30 General: Alert, In no apparent distress HEENT: Atraumatic, PERRLA, EOMI Neck: Supple, JVD not distended Respiratory: Clear to auscultation bilaterally, Normal air movement Cardiovascular: Regular rate/rhythm, Normal S1 S2 Gastrointestinal: Normal bowel sounds, No tenderness Musculoskeletal: No tenderness Integumentary: No rashes Neurological: Normal tone, Normal affect, Abnormal speech (Ectasia noted. Patient has tangential speech and needs to be redirected.) Lymphatics: No axilla or inguinal lymphadenopathy Laboratory Data at Discharge: WBC 5.0 K/uL (4.3-10.9) 04/06/18 04:03 Hgb 13.1 g/dL (13.6-17.9) L 04/06/18 04:03 Hct 38.1 % (39.6-49.0) L 04/06/18 04:03 Plt Count 186 K/uL (152-406) 04/06/18 04:03 PT 11.7 SECONDS (9.5-12.5) 04/04/18 15:10 INR 0.99 04/04/18 15:10 Sodium 144 mmol/L (136-145) 04/06/18 04:03 Potassium 4.0 mmol/L (3.5-5.1) 04/06/18 04:03 BUN 12 mg/dL (7-18) 04/06/18 04:03 Creatinine 0.80 mg/dL (0.55-1.3) 04/06/18 04:03 Glucose 96 mg/dL (74-106) 04/06/18 04:03 Phosphorus 3.4 mg/dL (2.5-4.9) 04/05/18 04:02 Magnesium 2.1 mg/dL (1.8-2.4) 04/06/18 04:03 Total Bilirubin 0.3 mg/dL (0.2-1.0) 04/05/18 04:02 AST 22 U/L (15-37) 04/05/18 04:02 ALT 26 U/L (12-78) 04/05/18 04:02 Alkaline Phosphatase 54 U/L (45-117) 04/05/18 04:02 Triglycerides 28 mg/dL (<150) 04/05/18 04:02 Cholesterol 118 mg/dL (<200) 04/05/18 04:02 HDL Cholesterol 50 mg/dL (40-60) 04/05/18 04:02 Cholesterol/HDL Ratio 2.36 04/05/18 04:02 Lipase 176 U/L (73-393) 04/04/18 15:10 Home Medications: Aspirin [Aspirin EC 81 MG] 81 mg PO DAILY 04/04/18 Lisinopril [Prinivil*] 20 mg PO DAILY 04/04/18 Losartan Potassium 100 mg PO DAILY 04/04/18 Saw [place] 320 mg PO DAILY 04/04/18 clonazePAM [Clonazepam] 1 mg PO DAILY PRN 04/04/18 Atorvastatin Calcium [Lipitor] 80 mg PO BEDTIME #30 tab 04/06/18 Clopidogrel Bisulfate [Plavix*] 75 mg PO DAILY #30 tablet 04/06/18 New Medications: Atorvastatin Calcium [Lipitor] 80 mg PO BEDTIME #30 tab Clopidogrel Bisulfate [Plavix*] 75 mg PO DAILY #30 tablet Patient Discharge Instructions: Please f.u with PCP and neurology in 1 to 2 week post discharge. New medication. Lipitor 80 mg daily. Plavix PO daily. Continue all other medication as precribed. Your BP was high here in the hospital. You are to continue taking your BP meds as precribed by your PCP and have a BP log. You BP will be adjusted by PCP based on the Log. Diet: Regular Activity: Ad anay Followup: Moe Jordan MD [ASSOCIATE-ACTIVE - CAN ADMIT] -
== END 2018-04-06 14:08 | disposition home health service (06) | DRG 66 ==
LOC: ER 12:55 → ERHOLD 15:12 → 4TH 17:31
PROVIDERS: ADMIT Hospitalist; ATTEND Family Medicine
DX: I63.512 Cerebral infarction due to unspecified occlusion or stenosis of left middle cerebral artery (principal); R47.01 Aphasia; I10 Essential (primary) hypertension; R29.702 NIHSS score 2; I25.10 Atherosclerotic heart disease of native coronary artery without angina pectoris; Z95.1 Presence of aortocoronary bypass graft; Z87.891 Personal history of nicotine dependence; E78.5 Hyperlipidemia, unspecified; I35.1 Nonrheumatic aortic (valve) insufficiency; I36.1 Nonrheumatic tricuspid (valve) insufficiency; Z79.82 Long term (current) use of aspirin
CPT/HCPCS: 36415; 70450; 70544; 70549; 70553; 71045; 80048; 80053; 80061; 80076; 81003; 82962; 83690; 83735; 83880; 84100; 84484; 85025; 85610; 85652; 86140; 87086; 87088; 93005; 93306; 93880; 94640; 96365; 96366; 97163; 99285; A9577; J1650; J7030; J7512